=== PATIENT | male | born 1960 | race Caucasian/White ===

== ENCOUNTER → 2017-06-12 | Outpatient (CLI) | payer OTHER ==
--- NOTE | 2017-06-12 10:41 | KCIC ---
ABDOMEN COMPLETE History: Right lower quadrant pain for 2 weeks, previous appendectomy Comparison: None. Findings: Multiple sonographic images of the abdomen are submitted. There is diffuse coarsening of the echotexture of liver. Right lobe of the liver measured 18.8 cm longitudinal. There is demonstrable flow in the main portal vein. Common bile duct is within normal limits at 0.4 cm. Abdominal aortic caliber is within normal limits in the midsegment 1.9 cm, proximally obscured by bowel gas. There is no abnormality of the visualized pancreas. Right kidney measured 12.2 x 5.7 x 5.4 cm. Left kidney measured 13.5 x 6 x 5.7 cm. There is no hydronephrosis of either kidney. Spleen measured 11 cm. Gallbladder is present without intraluminal abnormality, wall thickening, pericholecystic fluid. No free fluid is demonstrated. There is no demonstrable sonographic abnormality site of pain in the right lower quadrant. Impression: 1. There is hepatic steatosis and hepatomegaly. No other abnormality is demonstrated. Electronically signed by: Tomy Ta MD (06/12/2017 10:37 AM) [id number]
== END | disposition home or self-care (01) ==
LOC: KCIC US 07:42
PROVIDERS: ATTEND Family Medicine
DX: K76.0 Fatty (change of) liver, not elsewhere classified (principal); R16.0 Hepatomegaly, not elsewhere classified; Z90.49 Acquired absence of other specified parts of digestive tract
CPT/HCPCS: 76700

== ENCOUNTER → 2018-06-17 | Outpatient (CLI) | payer OTHER ==
--- NOTE | 2018-06-17 11:20 | KCIC ---
EXAM: Abdomen sonogram complete; pelvic sonogram. HISTORY: Pain. TECHNIQUE: Sonographic imaging of the abdomen and pelvis was performed. COMPARISON: 06/12/2017. FINDINGS: The liver is enlarged. There is hepatic steatosis. No focal hepatic lesion is seen. The gallbladder is unremarkable. The common bile duct is normal in caliber. The kidneys are normal in size. No solid or cystic renal lesion is seen. There is no hydronephrosis. The spleen is normal in size. The aorta, inferior vena cava and pancreas are partially obscured due to bowel gas. The urinary bladder is unremarkable. The ureteral jets are both seen. The prostate volume is 22 cc. There is bowel gas within the bilateral lower quadrants. There is no free fluid. IMPRESSION: 1. Hepatomegaly and hepatic steatosis. 2. Otherwise, relatively unremarkable abdomen and pelvis sonogram. Electronically signed by: Pamela Allred MD (06/17/2018 11:17 AM) [id number]
== END | disposition home or self-care (01) ==
LOC: KCIC US 07:47
PROVIDERS: ATTEND Family Medicine
DX: K76.0 Fatty (change of) liver, not elsewhere classified (principal); R16.0 Hepatomegaly, not elsewhere classified; Z90.49 Acquired absence of other specified parts of digestive tract
CPT/HCPCS: 76700; 76857

== ENCOUNTER → 2021-05-24 | Outpatient (CLI) | payer OTHER ==
[~2021-05-24] MED LIST: DAPA10TA PO; FLUT10.6 IH; IOHEXOL 240 MG/ML 50ML VIAL. PO ONE; IOHEXOL 300 MG/ML 100ML VIAL. IV ONE; METF-658 PO; SILD50TA PO
--- NOTE | 2021-05-24 13:14 | KCIC ---
CT HEAD WITHOUT CONTRAST 05/24/2021 9:55 AM Indication: Reason: ABDOMINAL PAIN, DIABETES MELLITUS TYPE 2, FATTY LIVER DISEASE NON-ALC . Comparison: None Procedure: Multidetector CT imaging of the head was performed without the administration of contrast. Findings: Limited visualization of the lung bases are unremarkable. The liver is mildly low in attenu ation. A component of hepatic steatosis is suspected. No other focal hepatic lesion is identified. Th e adrenal glands are unremarkable. The spleen is unremarkable. The kidneys are unremarkable. There is a cystic mass in the tail the pancreas measuring 2.7 cm in diameter. There is a 6 mm cystic structur e abutting of the larger cystic process. Some associated hypoattenuation of the adjacent pancreatic t ail appears to be present. There is no evidence of bowel obstruction. No evidence of an acute inflam matory process involving the bowel is identified. The appendix appears to be surgically absent. No fr ee fluid or free air seen in the abdomen or pelvis. Descending colonic diverticulosis noted. Bladder is grossly unremarkable. No acute osseous changes are seen. IMPRESSION: 1. 2.7 cm cystic lesion in the tail the pancreas with abutting 6 mm cystic lesion. Findings may repre sent a pancreatic cyst or pseudocyst however cystic pancreatic neoplasm is also possible. Recommend f urther characterization with multiphasic pancreatic MRI. Consider surgical consultation. 2. Probable mild hepatic steatosis CT DOSING PQRS STATEMENT: One or more of the following individualized dose reduction techniques were utilized for this examinat ion: 1. Automated exposure control 2. Adjustment of the mA and/or kV according to patient size 3. Use of iterative reconstruction technique Electronically signed by: Pankaj Woodard MD (05/24/2021 1:12 PM) [id number]
== END ==
LOC: KCIC CT 08:54
PROVIDERS: ATTEND Family Medicine
DX: K57.30 Diverticulosis of large intestine without perforation or abscess without bleeding (principal); E11.65 Type 2 diabetes mellitus with hyperglycemia; K76.0 Fatty (change of) liver, not elsewhere classified; K86.2 Cyst of pancreas
CPT/HCPCS: 74177; Q9966; Q9967

== ENCOUNTER → 2021-05-29 | Outpatient (CLI) | payer OTHER ==
[~2021-05-29] MED LIST changes: +GADOTERATE 7.5 MMOL/15ML VIAL. IVP ONE; -IOHEXOL 240 MG/ML 50ML VIAL. PO ONE; -IOHEXOL 300 MG/ML 100ML VIAL. IV ONE
--- NOTE | 2021-05-29 14:03 | KCIC ---
EXAMINATION: MRI abdomen without and with IV contrast. INDICATION: Cystic mass in the pancreas seen on prior CT exam. Further evaluation. TECHNIQUE: Multiplanar multisequence MRI of the abdomen performed without and with IV contrast. COMPARISON: CT dated 05/24/2021. FINDINGS: There is an ill-defined 4.2 x 1.8 cm hypoenhancing lesion with cystic changes in the pancreatic tail (series 15 image 32). This lesion appears isointense to mildly bright T2 signal with mild diffusion r estriction. It shows significant enhancement greater than the normal pancreatic parenchyma on delayed images. The lesion abuts splenic vein. Adjacent to the aforementioned lesion, there are 2 cystic lesions exophytic from the tail, the larges t measures 2.2 x 1.8 cm (series 9 image image 9), the smaller cystic lesion measures 0.8 cm. The sherry ining pancreatic parenchyma has normal bright T1 signal intensity with homogeneous enhancement. Dista l pancreatic duct is not visualized. Normal caliber pancreatic duct within the proximal head and neck . Pancreatic divisum is identified. Normal size and morphology of the liver with homogeneous enhancement. Severe diffuse hepatic steatosi s. No suspicious focal hepatic lesion. Gallbladder is unremarkable. No biliary ductal dilatation. Nor mal spleen. No adrenal nodule. No hydronephrosis in either kidney. Small simple appearing left renal cysts. No lymphadenopathy in the abdomen by size criteria. Normal caliber abdominal aorta. Mesenteric arteries and portal vein are patent. No ascites. No suspicious osseous lesion. Visualized lung bases are unremarkable. IMPRESSION: 1. Ill-defined 4.2 cm hypoenhancing pancreatic tail lesion. Differential includes adenocarcinoma vers us sequelae of chronic pancreatitis with parenchymal fibrosis. Recommend correlation with CA-19-9 and endoscopic ultrasound/tissue sampling. 2. Adjacent to the aforementioned lesion, there are 2 cystic lesions exophytic from the pancreatic ta il measuring up to 2.2 cm, suggesting of pseudocysts versus superimposed sidebranch intraductal papil heaven mucinous neoplasms. 3. No suspicious focal hepatic lesion or abdominal lymphadenopathy. 4. Severe diffuse hepatic steatosis. Electronically signed by: Rashaun Ferraro MD (05/29/2021 2:01 PM) [facility]
== END ==
LOC: KCIC MRI 08:06
PROVIDERS: ATTEND Nurse Practitioner Family
DX: K86.2 Cyst of pancreas (principal); K76.0 Fatty (change of) liver, not elsewhere classified
CPT/HCPCS: 74183; A9575